=== PATIENT | female | born 1965 | race Caucasian/White ===

== ENCOUNTER 2017-10-20 21:50 | Emergency (ER) | payer OTHER, MEDICAID, SELFPAY ==
[2017-10-20 21:58] VITALS: BP 132/85; PULSE 80; RESP 18; TEMP 36.6; O2SAT 95
--- NOTE | 2017-10-20 22:52 | ED.ABDPAIN ---
HPI - Abdominal Pain General Chief Complaint: Abdominal Pain Stated Complaint: VAGINAL BLEEDING Time Seen by Provider: 10/20/17 22:00 Source: patient Mode of arrival: ambulatory Limitations: no limitations History of Present Illness HPI narrative: 52-year-old female with noncontributory medical history presents to the emergency department with about 10 days of heavy vaginal bleeding. She is unclear if this is her normal menses and states she believes she is going through menopause. She does have some lower abdominal cramping but denies any vaginal discharge. She has become fatigued and a bit lightheaded. She denies chest pain or shortness of breath. She has had no nausea vomiting or diarrhea. She was recently evaluated at an outside facility (about a month ago) for an episode of vomiting and she had a slightly elevated white blood cell count at 17,[address] of the abdomen and pelvis. Otherwise she has been well. MD complaint: abdominal pain Onset (ago): day(s) Pain Consistency: intermittent Location: suprapubic Severity: mild Quality: cramping Radiation: none Migration to: no migration Relieving factors: nothing Exacerbating factors: nothing Associated symptoms: nausea and other (Weakness and fatigue) Related Data Allergies Allergy/AdvReac Type Severity Reaction Status Date / Time No Known Allergies Allergy Unknown Verified 10/20/17 22:48 [NO KNOWN ALLERGIES] Review of Systems Review of Systems All systems reviewed & are unremarkable except as noted in HPI and below Constitutional Denies chills, Denies fever(s), Denies lethargy and Reports weakness Eyes Denies change in vision, Denies eye discharge, Denies irritation and Denies loss of vision ENT Ears, Nose, Mouth, and Throat: Denies change in voice, Denies neck pain and Denies sore throat Cardiovascular Denies chest pain, Denies irregular heart rhythm, Denies lightheadedness, Denies palpitations, Denies dyspnea, Denies dyspnea on exertion and Denies orthopnea Respiratory Denies cough, Denies dyspnea, Denies dyspnea on exertion and Denies wheezing Gastrointestinal Gastrointestinal: Denies abdominal pain, Denies change in bowel habits, Denies diarrhea, Denies nausea and Denies vomiting Genitourinary Reports abnormal vaginal bleeding, Denies hematuria, Denies flank pain, Denies urinary incontinence and Denies urinary urgency Musculoskeletal Denies neck pain Integumentary/Breasts Denies pruritus, Denies erythema, Denies rash and Denies wounds Neurologic Denies confusion, Denies loss of vision and Reports weakness Psychiatric Denies anxiety, Denies confusion, Denies depression, Denies homicidal ideation and Denies suicidal ideation Endocrine Denies palpitations Hematologic/Lymphatic Denies easy bruising Allergic/Immunologic Denies wheezing Exam Initial Vital Signs Initial Vital Signs: Vital Signs Temperature 98 F 10/20/17 21:58 Pulse Rate 80 10/20/17 21:58 Respiratory Rate 18 10/20/17 21:58 Blood Pressure 132/85 10/20/17 21:58 Pulse Oximetry 95 10/20/17 21:58 Const General: cooperative, well developed and in distress Nutritional Appearance: well nourished Orientation: alert, awake, oriented x3 and not confused [place]EN[place] Head: normocephalic and atraumatic Ears: external ears normal and TM's normal bilaterally Nose: external nose normal and No nasal discharge Face and sinus: sinuses nontender, face symmetric, no sinus tenderness and No dry mucous membranes Mouth: oral mucosae normal and moist mucous membranes Teeth and gingiva: dentition normal Throat: tonsils normal and uvula midline Eyes General: appearance normal, both eyes and all related structures Eyelids: eyelids normal Conjunctivae: conjunctivae normal Sclera: sclerae normal Pupils: PERRL EOM: EOM intact bilaterally Neck Neck: normal visual inspection, trachea midline, No lymphadenopathy, No midline deformity and No JVD Lymphatic: No lymphedema Resp Effort & Inspection: normal respiratory effort, able to speak in complete sentences, no respiratory distress and no use of accessory muscles Auscultation: clear to auscultation bilaterally, no rales, no rhonchi and no wheezes GI Inspection: non-distended Palpation: soft, no hepatosplenomegaly, No guarding, No pulsatile mass and No tender Auscultation: normal bowel sounds External Female Exam: external appearance normal Speculum Exam - Vagina: vaginal bleeding (Mild dark bleeding from cervix) Speculum Exam - Cervix: normal appearance of the cervix OB/External & Speculum: vaginal bleeding (Mild dark bleeding from cervix) Skin General: no rashes or lesions noted, No jaundice and No petechiae Course Orders Ordered: ED Orders 10/20/17 23:00 Complete Blood Count AUTO DIFF Stat Comprehensive Metabolic Panel Stat 10/20/17 23:19 US pelvic complete Stat 10/20/17 23:30 Type and Screen Stat 10/21/17 00:01 Urine Culture Stat Urine Microscopic Stat Consultations Consultation #1: Called to Dr. Jesus whom recommends medroxyprogesterone, discharge and follow-up in her office later this morning Vital Signs - 8 hr 10/20/17 21:58 Temperature 98 F Pulse Rate 80 Respiratory Rate 18 Blood Pressure 132/85 Pulse Oximetry 95 MDM - Abdominal Pain Lab Data Result diagrams: 10/20/17 23:00 10/20/17 23:00 Lab Results 10/20/17 10/20/17 10/20/17 Range/Units 23:00 23:00 23:30 WBC 6.1 (4.5-11.0) X10^3/uL RBC 3.02 L (4.0-5.2) X10^6/uL Hgb 8.0 L (12.0-16.0) g/dL Hct 23.7 L (36-46) % MCV 78.7 L (80-100) fL MCH 26.5 (26-34) PG MCHC 33.6 (30-36) % RDW 16.0 H (11.6-14.8) % Plt Count 321 (150-400) X10^3/uL Neut % (Auto) 70.0 (50-75) % Lymph % (Auto) 20.3 L (25-40) % [place] % (Auto) 7.0 (3-14) % Eos % (Auto) 2.4 (2-4) % Baso % (Auto) 0.3 (0-2) % Neut # (Auto) 4300 (5425-7762) /uL Sodium 140 (137-145) mmol/L Potassium 4.0 (3.4-5.1) mmol/L Chloride 107 (98-107) mmol/L Carbon Dioxide 25 (22-32) mmol/L BUN 13 (7-17) mg/dL Creatinine 0.60 (0.52-1.04) mg/dL Estimated GFR > 60.0 (>60) mL/min BUN/Creatinine Ratio 21.7 (6-22) Glucose 106 H (70-100) mg/dL Calcium 8.7 (8.4-10.2) mg/dL Total Bilirubin 0.2 (0.2-1.3) mg/dL AST 20 (14-36) IU/L ALT 21 (9-52) IU/L Alkaline Phosphatase 60 (38-126) U/L Total Protein 6.4 (6.3-8.2) g/dL Albumin 3.5 (3.5-5.0) g/dL Globulin 2.9 (1.7-4.1) g/dL Albumin/Globulin Ratio 1.2 (1.0-2.8) Urine RBC (0-5/HPF) Urine WBC (0-5/HPF) Ur Squamous Epith Cells Urine Bacteria (None) Ur Culture Indicated? Micro UA Comment Blood Type O Negative Antibody Screen Negative 10/21/17 Range/Units 00:01 WBC (4.5-11.0) X10^3/uL RBC (4.0-5.2) X10^6/uL Hgb (12.0-16.0) g/dL Hct (36-46) % MCV (80-100) fL MCH (26-34) PG MCHC (30-36) % RDW (11.6-14.8) % Plt Count (150-400) X10^3/uL Neut % (Auto) (50-75) % Lymph % (Auto) (25-40) % [place] % (Auto) (3-14) % Eos % (Auto) (2-4) % Baso % (Auto) (0-2) % Neut # (Auto) (7781-4248) /uL Sodium (137-145) mmol/L Potassium (3.4-5.1) mmol/L Chloride (98-107) mmol/L Carbon Dioxide (22-32) mmol/L BUN (7-17) mg/dL Creatinine (0.52-1.04) mg/dL Estimated GFR (>60) mL/min BUN/Creatinine Ratio (6-22) Glucose (70-100) mg/dL Calcium (8.4-10.2) mg/dL Total Bilirubin (0.2-1.3) mg/dL AST (14-36) IU/L ALT (9-52) IU/L Alkaline Phosphatase (38-126) U/L Total Protein (6.3-8.2) g/dL Albumin (3.5-5.0) g/dL Globulin (1.7-4.1) g/dL Albumin/Globulin Ratio (1.0-2.8) Urine RBC 10-30/hpf H (0-5/HPF) Urine WBC 1-5/hpf (0-5/HPF) Ur Squamous Epith Cells 0-1 /hpf Urine Bacteria None seen (None) Ur Culture Indicated? Specimen cultured Micro UA Comment Not Reportable Blood Type Antibody Screen Point of care testing: Point of Care Testing Test Results Negative Urine Dip Bedside Urine Glucose Negative Bedside Urine Bilirubin - Negative Bedside Urine Ketone - Negative Urine Specific [place] 1.025 Bedside Urine Occult Blood ++ Bedside Urine pH 6.0 Bedside Urine Protein - Negative Bedside Urine Urobilinogen - Negative Bedside Urine Nitrite - Negative Bedside Urine Leukocytes +++ 500 Esterase Discharge Plan Departure Patient Disposition: Home Clinical Impression: Abnormal vaginal bleeding Instructions: DI for Vaginal Bleeding Activity Restrictions/Additional Instructions: *You have been diagnosed with [ abnormal vaginal bleeding ] *What to do: *Take medications as directed: Medroxyprogesterone 20 mg by mouth at 4:30 a.m., 630, 830, and subsequent dosing to be prescribed by Dr. Jesus office *Follow up with Dr. Jesus office later this morning, call for an appointment at 8:00 a.m.. Let them know you were seen in the Emergency Department and that we ask that you be seen in follow up *Return to ER if you should have any new, worsening or concerning symptoms, such as [ increasing bleeding, pain, fever over 101 F, other bothersome symptoms Referrals: Leyda Jesus MD [Physician] -
--- NOTE | 2017-10-20 23:19 | DI.US.S_ITS ---
PROCEDURE: US PELVIC COMPLETE INDICATIONS: vaginal bleeding TECHNIQUE: Real-time scanning was performed of the pelvic organs, with image documentation. Additional endovaginal scanning was necessary due to incomplete visualization of the adnexal and endometrial structures by transabdominal scanning. COMPARISON: None. FINDINGS: Transabdominal scanning: Limited scanning through the kidneys shows no hydronephrosis. No pathologic free abdominal or pelvic fluid. Endovaginal scanning: Uterus: Uterus is normal in size at 11.2 x 4.9 x 6.8 cm. small amount of endometrial fluid present and there is a avascular 4.0 x 2.6 x 1.1 cm endometrial echogenic mass. Ovaries: Right ovary measures 3.7 x 2.8 x 3.5 cm and the left ovary measures 4.6 x 4.6 x 4.5 cm. There are 2 simple cysts involving the left ovary largest measuring 4.2 x 3.1 x 3.6 cm. Simple cyst involves the right ovary measured 2.4 x 2.6 x 2.7 cm. Color-flow Doppler documents blood flow within the left ovary and there are no images demonstrate blood flow within the right ovary. IMPRESSION: 1. 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 Although findings may represent residual blood products (clot), differential would also include both benign and malignant neoplasm including endometrial carcinoma. Gynecologic consultation is recommended. 2. Bilateral simple ovarian cysts largest of which is on the left measuring up to 4.2 cm. Continued sonographic surveillance recommended. Note: These findings are concordant with the preliminary interpretation. Dictated by: Ty VERA Interpreted: Rayshawn Machuca MD on 10/21/2017 at 7:56 Approved by: Rayshawn Machuca M.D. on 10/21/2017 at 8:40
[2017-10-20 23:30] LABS: Add Manual Diff / Slide Review NO; Basophils Percent Auto 0.3 % (0-2); Eosinophils Percent Auto 2.4 % (2-4); Hematocrit 23.7 % (36-46); Lymphocytes Percent Auto 20.3 % (25-40); Mean Corpuscular HGB Conc 33.6 % (30-36); Mean Corpuscular Hemoglobin 26.5 PG (26-34); Mean Corpuscular Volume 78.7 fL (80-100); Neutrophils Absolute Auto 4300 /uL (3000-5900); Platelet Count 321 X10^3/uL (150-400); Red Blood Cell Count 3.02 X10^6/uL (4.0-5.2); White Blood Cell Count 6.1 X10^3/uL (4.5-11.0)
[2017-10-20 23:35] LABS: Alanine Aminotransferase 21 IU/L (9-52); Albumin 3.5 g/dL (3.5-5.0); Albumin Globulin Ratio 1.2 (1.0-2.8); Alkaline Phosphatase 60 U/L (38-126); Aspartate Aminotransferase 20 IU/L (14-36); BUN Creatinine Ratio 21.7 (6-22); Bilirubin Total 0.2 mg/dL (0.2-1.3); Blood Urea Nitrogen 13 mg/dL (7-17); Calcium 8.7 mg/dL (8.4-10.2); Carbon Dioxide 25 mmol/L (22-32); Chloride 107 mmol/L (98-107); Estimated Glomerular Filt Rate > 60.0 mL/min (>60); Globulin 2.9 g/dL (1.7-4.1); Glucose 106 mg/dL (70-100); HEMOLYSIS < 15 (0-50); Sodium 140 mmol/L (137-145); Total Protein 6.4 g/dL (6.3-8.2)
--- NOTE | 2017-10-20 23:38 | ED_ITS ---
HPI - Abdominal Pain General Chief Complaint: Abdominal Pain Stated Complaint: VAGINAL BLEEDING Time Seen by Provider: 10/20/17 22:00 Source: patient Mode of arrival: ambulatory Limitations: no limitations History of Present Illness HPI narrative: 52-year-old female with noncontributory medical history presents to the emergency department with about 10 days of heavy vaginal bleeding. She is unclear if this is her normal menses and states she believes she is going through menopause. She does have some lower abdominal cramping but denies any vaginal discharge. She has become fatigued and a bit lightheaded. She denies chest pain or shortness of breath. She has had no nausea vomiting or diarrhea. She was recently evaluated at an outside facility (about a month ago) for an episode of vomiting and she had a slightly elevated white blood cell count at 17 ,[address] of the abdomen and pelvis. Otherwise she has been well. MD complaint: abdominal pain Onset (ago): day(s) Pain Consistency: intermittent Location: suprapubic Severity: mild Quality: cramping Radiation: none Migration to: no migration Relieving factors: nothing Exacerbating factors: nothing Associated symptoms: nausea and other (Weakness and fatigue) Related Data Allergies Allergy/AdvReac Type Severity Reaction Status Date / Time No Known Allergies Allergy Unknown Verified 10/20/17 22:48 [NO KNOWN ALLERGIES] Review of Systems Review of Systems All systems reviewed & are unremarkable except as noted in HPI and below Constitutional Denies chills, Denies fever(s), Denies lethargy and Reports weakness Eyes Denies change in vision, Denies eye discharge, Denies irritation and Denies loss of vision ENT Ears, Nose, Mouth, and Throat: Denies change in voice, Denies neck pain and Denies sore throat Cardiovascular Denies chest pain, Denies irregular heart rhythm, Denies lightheadedness, Denies palpitations, Denies dyspnea, Denies dyspnea on exertion and Denies orthopnea Respiratory Denies cough, Denies dyspnea, Denies dyspnea on exertion and Denies wheezing Gastrointestinal Gastrointestinal: Denies abdominal pain, Denies change in bowel habits, Denies diarrhea, Denies nausea and Denies vomiting Genitourinary Reports abnormal vaginal bleeding, Denies hematuria, Denies flank pain, Denies urinary incontinence and Denies urinary urgency Musculoskeletal Denies neck pain Integumentary/Breasts Denies pruritus, Denies erythema, Denies rash and Denies wounds Neurologic Denies confusion, Denies loss of vision and Reports weakness Psychiatric Denies anxiety, Denies confusion, Denies depression, Denies homicidal ideation and Denies suicidal ideation Endocrine Denies palpitations Hematologic/Lymphatic Denies easy bruising Allergic/Immunologic Denies wheezing Exam Initial Vital Signs Initial Vital Signs: Vital Signs Temperature 98 F 10/20/17 21:58 Pulse Rate 80 10/20/17 21:58 Respiratory Rate 18 10/20/17 21:58 Blood Pressure 132/85 10/20/17 21:58 Pulse Oximetry 95 10/20/17 21:58 Const General: cooperative, well developed and in distress Nutritional Appearance: well nourished Orientation: alert, awake, oriented x3 and not confused [place]EN[place] Head: normocephalic and atraumatic Ears: external ears normal and TM's normal bilaterally Nose: external nose normal and No nasal discharge Face and sinus: sinuses nontender, face symmetric, no sinus tenderness and No dry mucous membranes Mouth: oral mucosae normal and moist mucous membranes Teeth and gingiva: dentition normal Throat: tonsils normal and uvula midline Eyes General: appearance normal, both eyes and all related structures Eyelids: eyelids normal Conjunctivae: conjunctivae normal Sclera: sclerae normal Pupils: PERRL EOM: EOM intact bilaterally Neck Neck: normal visual inspection, trachea midline, No lymphadenopathy, No midline deformity and No JVD Lymphatic: No lymphedema Resp Effort & Inspection: normal respiratory effort, able to speak in complete sentences, no respiratory distress and no use of accessory muscles Auscultation: clear to auscultation bilaterally, no rales, no rhonchi and no wheezes GI Inspection: non-distended Palpation: soft, no hepatosplenomegaly, No guarding, No pulsatile mass and No tender Auscultation: normal bowel sounds External Female Exam: external appearance normal Speculum Exam - Vagina: vaginal bleeding (Mild dark bleeding from cervix) Speculum Exam - Cervix: normal appearance of the cervix OB/External & Speculum: vaginal bleeding (Mild dark bleeding from cervix) Skin General: no rashes or lesions noted, No jaundice and No petechiae Course Orders Ordered: ED Orders 10/20/17 23:00 Complete Blood Count AUTO DIFF Stat Comprehensive Metabolic Panel Stat 10/20/17 23:19 US pelvic complete Stat 10/20/17 23:30 Type and Screen Stat 10/21/17 00:01 Urine Culture Stat Urine Microscopic Stat Consultations Consultation #1: Called to Dr. Jesus whom recommends medroxyprogesterone, discharge and follow-up in her office later this morning Vital Signs - 8 hr 10/20/17 21:58 Temperature 98 F Pulse Rate 80 Respiratory Rate 18 Blood Pressure 132/85 Pulse Oximetry 95 MDM - Abdominal Pain Lab Data Result diagrams: 10/20/17 23:00 10/20/17 23:00 Lab Results 10/20/17 10/20/17 10/20/17 Range/Units 23:00 23:00 23:30 WBC 6.1 (4.5-11.0) X10^3/uL RBC 3.02 L (4.0-5.2) X10^6/uL Hgb 8.0 L (12.0-16.0) g/dL Hct 23.7 L (36-46) % MCV 78.7 L (80-100) fL MCH 26.5 (26-34) PG MCHC 33.6 (30-36) % RDW 16.0 H (11.6-14.8) % Plt Count 321 (150-400) X10^3/uL Neut % (Auto) 70.0 (50-75) % Lymph % (Auto) 20.3 L (25-40) % [place] % (Auto) 7.0 (3-14) % Eos % (Auto) 2.4 (2-4) % Baso % (Auto) 0.3 (0-2) % Neut # (Auto) 4300 (2068-5627) /uL Sodium 140 (137-145) mmol/L Potassium 4.0 (3.4-5.1) mmol/L Chloride 107 (98-107) mmol/L Carbon Dioxide 25 (22-32) mmol/L BUN 13 (7-17) mg/dL Creatinine 0.60 (0.52-1.04) mg/dL Estimated GFR > 60.0 (>60) mL/min BUN/Creatinine Ratio 21.7 (6-22) Glucose 106 H (70-100) mg/dL Calcium 8.7 (8.4-10.2) mg/dL Total Bilirubin 0.2 (0.2-1.3) mg/dL AST 20 (14-36) IU/L ALT 21 (9-52) IU/L Alkaline Phosphatase 60 (38-126) U/L Total Protein 6.4 (6.3-8.2) g/dL Albumin 3.5 (3.5-5.0) g/dL Globulin 2.9 (1.7-4.1) g/dL Albumin/Globulin Ratio 1.2 (1.0-2.8) Urine RBC (0-5/HPF) Urine WBC (0-5/HPF) Ur Squamous Epith Cells Urine Bacteria (None) Ur Culture Indicated? Micro UA Comment Blood Type O Negative Antibody Screen Negative 10/21/17 Range/Units 00:01 WBC (4.5-11.0) X10^3/uL RBC (4.0-5.2) X10^6/uL Hgb (12.0-16.0) g/dL Hct (36-46) % MCV (80-100) fL MCH (26-34) PG MCHC (30-36) % RDW (11.6-14.8) % Plt Count (150-400) X10^3/uL Neut % (Auto) (50-75) % Lymph % (Auto) (25-40) % [place] % (Auto) (3-14) % Eos % (Auto) (2-4) % Baso % (Auto) (0-2) % Neut # (Auto) (7741-6309) /uL Sodium (137-145) mmol/L Potassium (3.4-5.1) mmol/L Chloride (98-107) mmol/L Carbon Dioxide (22-32) mmol/L BUN (7-17) mg/dL Creatinine (0.52-1.04) mg/dL Estimated GFR (>60) mL/min BUN/Creatinine Ratio (6-22) Glucose (70-100) mg/dL Calcium (8.4-10.2) mg/dL Total Bilirubin (0.2-1.3) mg/dL AST (14-36) IU/L ALT (9-52) IU/L Alkaline Phosphatase (38-126) U/L Total Protein (6.3-8.2) g/dL Albumin (3.5-5.0) g/dL Globulin (1.7-4.1) g/dL Albumin/Globulin Ratio (1.0-2.8) Urine RBC 10-30/hpf H (0-5/HPF) Urine WBC 1-5/hpf (0-5/HPF) Ur Squamous Epith Cells 0-1 /hpf Urine Bacteria None seen (None) Ur Culture Indicated? Specimen cultured Micro UA Comment Not Reportable Blood Type Antibody Screen Point of care testing: Point of Care Testing Test Results Negative Urine Dip Bedside Urine Glucose Negative Bedside Urine Bilirubin - Negative Bedside Urine Ketone - Negative Urine Specific [place] 1.025 Bedside Urine Occult Blood ++ Bedside Urine pH 6.0 Bedside Urine Protein - Negative Bedside Urine Urobilinogen - Negative Bedside Urine Nitrite - Negative Bedside Urine Leukocytes +++ 500 Esterase Discharge Plan Departure Patient Disposition: Home Clinical Impression: Abnormal vaginal bleeding Instructions: DI for Vaginal Bleeding Activity Restrictions/Additional Instructions: *You have been diagnosed with [ abnormal vaginal bleeding ] *What to do: *Take medications as directed: Medroxyprogesterone 20 mg by mouth at 4:30 a.m., 630, 830, and subsequent dosing to be prescribed by Dr. Jesus office *Follow up with Dr. Jesus office later this morning, call for an appointment at 8:00 a.m.. Let them know you were seen in the Emergency Department and that we ask that you be seen in follow up *Return to ER if you should have any new, worsening or concerning symptoms , such as [ increasing bleeding, pain, fever over 101 F, other bothersome symptoms Referrals: Leyda Jesus MD [Physician] -
--- NOTE | 2017-10-21 00:56 | PC.NURSE ---
Pt states vaginal bleeding for past 10days filling a pad an hour with mild lower abdominal cramping. States has been going through menopause for about a year and unsure of last menstrual period reports two living children, two ectopic pregnancies, multiple miscarriages and hx cysts and possible endometriosis. Pt had small amount of blood present on pad upon assessment.
[2017-10-21 01:09] LABS: Bacteria Urine None Seen
[2017-10-21 01:28] LABS: Culture Indicated Urine Specimen Cultured; RBC Urine 10-30/HPF (0-5/HPF); Squamous Epithelial Cell Urine 0-1 /HPF; WBC Urine 1-5/HPF (0-5/HPF)
[2017-10-21] MEDS: MEDROXYPROGESTERONE ACETATE 10 MG TABLET 80 MG PO (02:11)
[2017-10-21 02:20] VITALS: BP 130/74; PULSE 80; RESP 15; TEMP 36.8; O2SAT 100
== END 2017-10-21 02:21 | disposition home or self-care (01) ==
PROVIDERS: Emergency Provider Emergency Medicine
DX: N93.9 Abnormal uterine and vaginal bleeding, unspecified (principal)
CPT/HCPCS: 36591; 76830; 76856; 80053; 81003; 81015; 81025; 85025; 86850; 86900; 86901; 87086; 99283; 99284

== ENCOUNTER 2021-08-06 13:48 | Emergency (ER) | payer OTHER, MEDICAID, SELFPAY ==
[2021-08-06 13:48] VITALS: BP 168/90; PULSE 81; RESP 18; TEMP 36.8; O2SAT 97; BMI 28.6
--- NOTE | 2021-08-06 14:31 | PC.NURSE ---
pt states that she has been having issues for a few years. about 2 years ago she started having pelvic pain that has been progressively getting worse. she feels like she has a growth inside her vagina. this growth has grown a lot bigger recently. she feels like there is a hole down there. c/o water white discharge that is intermittent and can be large amounts or none. she has been feeling lethargic, decreased appetite for the past month, has nausea, and bloating. last pap was 22 years ago. no change in bowel pattern.
--- NOTE | 2021-08-06 14:33 | ED_ITS ---
HPI - Female Genitourinary <Titus Mckeon PA-C - Last Filed: 08/06/21 15:02> General Chief complaint: Urogenital-Female Stated complaint: Mass in Female Area,Growing Time Seen by Provider: 08/06/21 13:52 Source: patient Mode of arrival: Ambulatory History of Present Illness HPI Narrative: 55-year-old female presents to the emergency department due to worsening pelvic pain over the last year. States that she feels a ?mass that is growing? in her vaginal area with moderate discomfort. Denies any fevers, nausea, vomiting, or any other concerning signs or symptoms. Denies any severe abdominal pain or vaginal bleeding. Does report mild white discharge without odor. States she has not seen a primary care provider in ?a very long time?. No longer having periods. History of 2 C sections. Related Data Previous Rx's Medication Instructions Recorded medroxyprogesterone 10 mg tablet See Rx Instructions PO DAILY 10/21/17 menorrhagia #100 tabs medroxyprogesterone 10 mg tablet 10 mg PO .COMPLEX Dysfunctional 11/16/17 uterine bleeding #30 tabs Allergies Allergy/AdvReac Type Severity Reaction Status Date / Time No Known Allergies Allergy Unknown Verified 11/16/17 08:11 [NO KNOWN ALLERGIES] Review of Systems <Titus Mckeon PA-C - Last Filed: 08/06/21 15:02> Review of Systems Narrative: GENERAL: Denies chills, fatigue, malaise, fever, sweats. HEENT: Denies sinus pain, ear pain, sore throat, difficulty swallowing, dizziness. RESPIRATORY: Denies dyspnea, cough, wheezing, hemoptysis, sputum. CARDIOVASCULAR: Denies chest pain, palpitations, orthopnea, edema, GASTROINTESTINAL: Denies, vomiting, diarrhea, constipation, melena. : Denies dysuria, frequency, incontinence, hematuria, urinary retention. Reports pelvic pain and ?mass?. Denies vaginal bleeding. MUSCULOSKELETAL: denies weakness, joint pain, or bony pain SKIN: Denies rash, skin lesions, or other NEUROLOGIC: Denies weakness, headache, numbness, change in speech, confusion, seizures, incoordination. PSYCHIATRIC: No concerning psychosocial issues. 12 point review of systems is negative except for those stated above Patient History <Titus Mckeon PA-C - Last Filed: 08/06/21 15:02> Substance Use Type: does not use Exam <NIKOLAS Calvin Last Filed: 08/06/21 15:02> Narrative Exam Narrative: GENERAL: Well-developed patient, in mild distress. HEAD: Atraumatic. Normocephalic. EYES: Pupils equal round and reactive. Extraocular motions intact. No scleral icterus. No injection or drainage. ENT: Nose without bleeding, purulent drainage. Throat without erythema, tonsillar hypertrophy or exudate. Airway patent. NECK: Trachea midline. Non tender CARDIOVASCULAR: Regular rate and rhythm without murmurs, gallops, or rubs. RESPIRATORY: Clear to auscultation. Breath sounds equal bilaterally. No wheezes, rales, or rhonchi. GASTROINTESTINAL: Abdomen soft, mild suprapubic tenderness to palpation. EXTREMITIES: No edema or joint tenderness. BACK: Nontender without deformity or crepitance. No flank tenderness. NEURO: AOx3. SKIN: No rash or erythema of visible areas : Performed with chief security and safety officer in room. Evidence of protruding cervix with cervical os visible. No surrounding abscess is or noticeable discharge. Unable to perform further vaginal canal examination did secondary to patient's tenderness on exam. Initial Vital Signs Initial Vital Signs: Vital Signs Temperature 98.3 F 08/06/21 13:48 Pulse Rate 81 08/06/21 13:48 Respiratory Rate 18 08/06/21 13:48 Blood Pressure 168/90 H 08/06/21 13:48 Pulse Oximetry 97 08/06/21 13:48 Oxygen Delivery Method 08/06/21 13:48 <Roly Morin DO - Last Filed: 08/14/21 20:37> Initial Vital Signs Initial Vital Signs: Vital Signs Temperature 98.3 F 08/06/21 13:48 Pulse Rate 81 08/06/21 13:48 Respiratory Rate 18 08/06/21 13:48 Blood Pressure 168/90 H 08/06/21 13:48 Pulse Oximetry 97 08/06/21 13:48 Oxygen Delivery Method 08/06/21 13:48 Course <Titus Mckeon PA-C - Last Filed: 08/06/21 15:02> Vital Signs Vital signs: Vital Signs - 8 hr 08/06/21 13:48 Temperature 98.3 F Pulse Rate 81 Respiratory Rate 18 Blood Pressure 168/90 H Pulse Oximetry 97 Oxygen Delivery Method Nasal Cannula <Roly Morin DO - Last Filed: 08/14/21 20:37> Vital Signs Vital signs: Vital Signs - 8 hr 08/06/21 13:48 Temperature 98.3 F Pulse Rate 81 Respiratory Rate 18 Blood Pressure 168/90 H Pulse Oximetry 97 Oxygen Delivery Method Nasal Cannula MDM - Female Genitourinary <Titus Mckeon PA-C - Last Filed: 08/06/21 15:02> MDM Narrative Medical decision making narrative: 55-year-old female presenting with suspected cervical prolapse. Attempted reduction but unable to complete secondary to patient tenderness. Recommend ibuprofen and Tylenol for pain control. Instructed patient to follow-up with supervisor dental laboratory for further management and evaluation. Patient does not report any concerning signs or symptoms concerning for further infection. Recommended [id number] pessary and pelvic floor exercises for conservative management until able follow-up with supervisor dental laboratory Discharge Plan Departure Patient Disposition: Home Clinical Impression: Uterine prolapse Instructions: Uterine Prolapse Activity Restrictions/Additional Instructions: Thank you for coming to the [facility] Emergency Department today. On exam I suspect you have a uterine or cervical prolapse. We were able to see the cervix on physical exam. Ibuprofen will help with the swelling and pain. I recommended by and [id number] pessary which is the device to place inside of her vagina to help hold your pelvic organs in place. Please follow-up with the supervisor crack off who is information is provided for long-term treatment. I hope you feel better soon. Prescriptions: No Action medroxyprogesterone 10 mg tablet See Rx Instructions PO DAILY Qty: 100 1RF Dose Instruction: 2 PO DAILY; Rx Instructions: 2 tabs po QID x 3 day, then TID for 3 days, then BID for 3 days then daily medroxyprogesterone 10 mg tablet 10 mg PO .COMPLEX Qty: 30 0RF Rx Instructions: Take 1 pill daily the to of each month Referrals: PerhamAdenike MD [Physician] - (55 y/o female presenting w/ suspected uterine prolapse. Unable to reduce in ED. Referred for further eval and management. Thank you! ) Sue,MD Bolivar [Primary Care Provider] - Visit Report Forms: Patient Portal/API <Roly Morin DO - Last Filed: 08/14/21 20:37> Cosign ED Attending Mickeyature Attestation: I was immediately available in the department for consultation. This documentation has been reviewed and I agree with assessment and plan. Supervised by Roly Morin, DO
[2021-08-06 15:19] VITALS: BP 140/68; PULSE 71; RESP 18; O2SAT 100
== END 2021-08-06 15:20 | disposition home or self-care (01) ==
PROVIDERS: Emergency Provider Physician Assistant Medical
DX: N81.4 Uterovaginal prolapse, unspecified (principal)
CPT/HCPCS: 99282; 99284